=== PATIENT | female | born 1990 | race American Indian/Alaskan Native ===

== ENCOUNTER 2018-03-09 17:17 | Emergency (ER) | payer SELFPAY ==
--- NOTE | 2018-03-09 18:15 | Emergency Department Report ---
ED Abdominal Pain HPI - General Chief Complaint: Abdominal Pain Stated Complaint: STOMACH PAIN Time Seen by Provider: 03/09/18 18:11 Source: patient Mode of arrival: Ambulatory Limitations: No Limitations - History of Present Illness MD Complaint: abdominal pain -: Sudden, days(s) (1. Pain started after a ground-level fall onto asphalt, landing onto her chest and stomach. Reports progressively worsening pain since the accident almost 24 hours ago) Location: diffuse Radiation: none Migration to: no migration Severity: moderate Quality: aching, dull Consistency: constant Improves With: nothing, eating Worsens With: movement Associated Symptoms: denies: nausea, diarrhea, constipation, dysuria, hematemesis, hematochezia, melena, hematuria, anorexia, syncope - Related Data Previous Rx's Medication Instructions Recorded Last Taken Type Ketorolac [Toradol] 10 mg PO Q6H PRN #8 tablet 03/09/18 Unknown Rx Allergies Allergy/AdvReac Type Severity Reaction Status Date / Time No Known Allergies Allergy Verified 03/09/18 17:37 ED Review of Systems ROS: Stated complaint: STOMACH PAIN Other details as noted in HPI Constitutional: denies: chills, fever Eyes: denies: eye pain, eye discharge, vision change ENT: denies: ear pain, throat pain Respiratory: denies: cough, shortness of breath, wheezing Cardiovascular: denies: chest pain, palpitations Endocrine: no symptoms reported Gastrointestinal: abdominal pain. denies: nausea, vomiting, diarrhea, hematemesis Genitourinary: denies: urgency, dysuria, discharge Musculoskeletal: denies: back pain, joint swelling, arthralgia Skin: denies: rash, lesions Neurological: denies: headache, weakness, paresthesias Psychiatric: denies: anxiety, depression Hematological/Lymphatic: denies: easy bleeding, easy bruising ED Past Medical Hx - Past Medical History Previous Medical History?: No - Surgical History Past Surgical History?: No - Social History Smoking Status: Former Smoker Substance Use Type: Alcohol, Marijuana - Medications Home Medications: Home Medications Medication Instructions Recorded Confirmed Last Taken Type Ketorolac [Toradol] 10 mg PO Q6H PRN #8 tablet 03/09/18 Unknown Rx ED Physical Exam - General Limitations: No Limitations General appearance: alert, in no apparent distress - Head Head exam: Present: atraumatic, normocephalic - Eye Eye exam: Present: normal appearance, PERRL Pupils: Present: normal accommodation - ENT ENT exam: Present: normal exam, mucous membranes moist - Neck Neck exam: Present: normal inspection - Respiratory Respiratory exam: Present: normal lung sounds bilaterally. Absent: respiratory distress - Cardiovascular Cardiovascular Exam: Present: regular rate, normal rhythm. Absent: systolic murmur, diastolic murmur, rubs, gallop - GI/Abdominal GI/Abdominal exam: Present: soft, tenderness (no Judy sign, no [place], no Rovsing, no Lemons's, general tenderness with palpation), normal bowel sounds. Absent: distended, guarding, rebound, organomegaly, mass, pulsatile mass - Extremities Exam Extremities exam: Present: normal inspection - Back Exam Back exam: Present: normal inspection - Neurological Exam Neurological exam: Present: alert, oriented X3 - Psychiatric Psychiatric exam: Present: normal affect, normal mood - Skin Skin exam: Present: warm, dry, intact, normal color. Absent: rash ED Course Vital Signs 03/09/18 17:37 Temperature 98.8 F Pulse Rate 69 Respiratory 16 Rate Blood Pressure 142/75 O2 Sat by Pulse 99 Oximetry ED Medical Decision Making - Lab Data Result diagrams: 03/09/18 18:16 03/09/18 18:16 Critical care attestation.: If time is entered above; I have spent that time in minutes in the direct care of this critically ill patient, excluding procedure time. ED Disposition Clinical Impression: Abdominal pain Disposition: DC-01 TO HOME OR SELFCARE Is pt being admited?: No Does the pt Need Aspirin: No Condition: Stable Instructions: Abdominal Pain (ED) Prescriptions: Ketorolac [Toradol] 10 mg PO Q6H PRN #8 tablet PRN Reason: Pain Referrals: PRIMARY CARE, [Primary Care Provider] - 3-5 Days [facility] [Provider Group] - 2-3 Days
[2018-03-09 18:32] LABS: Basophils % (Auto) 0.8 % (0.0-1.8); Eosinophils # (Auto) 0.3 K/mm3 (0.0-0.4); Eosinophils % (Auto) 5.5 % (0.0-4.3); Hematocrit 41.1 % (30.3-42.9); Hemoglobin 13.5 gm/dl (10.1-14.3); Lymphocytes # (Auto) 2.4 K/mm3 (1.2-5.4); Lymphocytes % (Auto) 40.6 % (13.4-35.0); Mean Corpuscular HGB Conc 33 % (30-34); Mean Corpuscular Hemoglobin 31 pg (28-32); Mean Corpuscular Volume 93 fl (79-97); Monocytes # (Auto) 0.5 K/mm3 (0.0-0.8); Monocytes % (Auto) 8.5 % (0.0-7.3); Platelet Count 195 K/mm3 (140-440); Red Blood Count 4.44 M/mm3 (3.65-5.03); Red Cell Distribution Width 13.1 % (13.2-15.2)
[2018-03-09 18:45] LABS: Alanine Aminotransferase 13 units/L (7-56); Albumin 4.1 g/dL (3.9-5); BUN/Creatinine Ratio 17; Blood Urea Nitrogen 12 mg/dL (7-17); Calcium 9.5 mg/dL (8.4-10.2); Hemolysis Index 9; Lipase 18 units/L (13-60)
[2018-03-09 19:53] LABS: HCG Qualitative,Urine Negative (Negative)
[2018-03-09 19:55] LABS: Bacteria,Urine 1+ /HPF (Negative); Bilirubin,Urine NEG (Negative); Blood,Urine NEG (Negative); Color,Urine Yellow (Yellow); Mucus,Urine FEW /HPF; Protein,Urine <15 mg/dL mg/dL (Negative)
--- NOTE | 2018-03-09 20:32 | Cat Scan Report ---
FINAL REPORT PROCEDURE: CT ABDOMEN PELVIS W CON TECHNIQUE: Computerized axial tomography of the abdomen and pelvis was performed after the IV injection of iodinated nonionic contrast. HISTORY: fall to abdomen and c/o of worsening pain since. COMPARISON: No prior studies are available for comparison. FINDINGS: Liver, spleen, pancreas and adrenal glands are within normal limits. Bilateral kidneys demonstrate normal enhancement without hydronephrosis. Urinary bladder is minimally filled with normal outlines. Aorta is of normal caliber. Minimal degree free fluid is noted in the pelvic cavity which is within physiologic limits. History uterus is retroverted. Gallbladder is unremarkable. Small bowel loops are within normal limits. Colonic diverticula are noted without evidence of diverticulitis. Appendix is normal. Vertebral height is normal.. IMPRESSION: No evidence of acute intra-abdominal or pelvic visceral injury. Retroverted uterus
[2018-03-09 22:24] VITALS: BP 103/50
== END 2018-03-09 22:24 | disposition home or self-care (01) ==
LOC: ED 17:17
DX: R10.84 Generalized abdominal pain (principal); Z87.891 Personal history of nicotine dependence; F12.10 Cannabis abuse, uncomplicated
CPT/HCPCS: 36415; 74177; 80053; 81001; 81025; 83690; 85025; 99284; Q9967

== ENCOUNTER 2019-05-16 21:29 | Emergency (ER) | payer SELFPAY ==
[2019-05-16 23:49] LABS: HCG Qualitative,Urine Negative (Negative)
[2019-05-16 23:58] LABS: Bacteria,Urine 1+ /HPF (Negative); Bilirubin,Urine NEG (Negative); Blood,Urine NEG (Negative); Color,Urine Yellow (Yellow); Mucus,Urine FEW /HPF; Protein,Urine <15 mg/dL mg/dL (Negative); Urobilinogen,Urine < 2.0 mg/dL (<2.0)
--- NOTE | 2019-05-17 02:29 | Emergency Department Report ---
Chief Complaint: Abdominal Pain Stated Complaint: VAGINAL/ABD PAIN Time Seen by Provider: 05/17/19 01:07 - HPI History of Present Illness: 28-year-old female presents to ED complaining of vaginal discharge for the past 1 week. Patient states discharge is malodorous. Patient denies fevers/chills/nausea vomiting/pelvic pain/dysuria - ROS Review of Systems: As noted in HPI - Exam Vital Signs: Vital Signs 05/16/19 22:45 Temperature 98.2 F Pulse Rate 88 Respiratory 18 Rate Blood Pressure 129/55 O2 Sat by Pulse 100 Oximetry Physical Exam: GENERAL: Alert and oriented x3, no apparent distress, Normal Gait, atraumatic. HEAD: Head is normocephalic and a-traumatic. SKIN: Warm and dry, No lesions, No ulceration or induration present. MSE screening note: Focused history and physical exam performed. Due to findings the following was ordered: ED Medical Decision Making - Medical Decision Making 28-year-old female presents with vaginitis. Discussed the patient to follow-up with . medical clinic for further screening and testing and treatment if needed. Vital signs are normal. Patient is in no acute distress ED Disposition for MSE Clinical Impression: Vaginitis Disposition: DC-01 TO HOME OR SELFCARE Is pt being admited?: No Does the pt Need Aspirin: No Condition: Stable Instructions: Abdominal Pain (ED), Vaginitis (ED) Additional Instructions: Make sure to follow up with the primary care physician as discussed. Take all your medications as you've been prescribed. If you have any worsening symptoms or develop new symptoms please return to ED immediately. Prescriptions: metroNIDAZOLE [Flagyl TAB] 500 mg PO Q12HR #14 tab Forms: Work/School Release Form(ED) Time of Disposition: 02:32
[2019-05-17 03:19] VITALS: BP 117/71
== END 2019-05-17 02:45 | disposition home or self-care (01) ==
LOC: ED 21:29
DX: N76.0 Acute vaginitis (principal)
CPT/HCPCS: 81001; 81025